=== PATIENT | female | born 1995 | race Caucasian/White ===

== ENCOUNTER → 2020-03-10 | Outpatient (CLI) | payer BC | LOC: HEART 5 09:30 | DX: R07.9 Chest pain, unspecified (principal) | CPT/HCPCS: 93306 ==

== ENCOUNTER → 2020-06-13 | Outpatient (CLI) | payer OTHER, BC | LOC: KOH-I 11:28 | DX: M79.671 Pain in right foot (principal); M79.672 Pain in left foot; R93.6 Abnormal findings on diagnostic imaging of limbs; R60.0 Localized edema; V89.2XXA Person injured in unspecified motor-vehicle accident, traffic, initial encounter | CPT/HCPCS: 73718 ==

== ENCOUNTER → 2020-08-06 | Outpatient (CLI) | payer OTHER | LOC: KOH-I 13:45 | DX: S92.015 Nondisplaced fracture of body of left calcaneus (principal) | CPT/HCPCS: 73718 ==

== ENCOUNTER → 2020-11-04 | Outpatient (CLI) | payer BC | LOC: KOH-I 11:00 | DX: I82.402 Acute embolism and thrombosis of unspecified deep veins of left lower extremity (principal); I82.812 Embolism and thrombosis of superficial veins of left lower extremity | CPT/HCPCS: 93971 ==